=== PATIENT | female | born 1955 | race Caucasian/White ===

== ENCOUNTER 2018-10-22 10:17 | Emergency (ER) | payer OTHER ==
--- NOTE | 2018-10-22 10:28 | PDOC ---
History of Present Illness - General Chief Complaint: Nausea/Vomiting Stated Complaint: NAUSEA & DIZZY Time Seen by Provider: 10/22/18 10:20 History Source: Patient Exam Limitations: No Limitations - History of Present Illness Initial Comments: 10/22/18 10:28 Ms. Gottlieb is a 63-year-old female who presents emergency department with a complaint of nausea and dizziness. Patient states actually over the last few weeks she's noted episodic episodes of lightheadedness. Last night when she went to bed she noticed a thump in her chest while watching television. This happened only once she was able easily to fall asleep. This morning she woke feeling very fatigued. She was able to get to work but noticed that she felt unbalanced. She noticed that she got into a cold sweat. Her symptoms are not depending on her positioning. She has no associated headache, chest pain, palpitation. She did have an episode of nausea, no vomiting. No fever or chills. No recent travel. no prior [place] Last saw PMD 7 months ago PMH: HLD PSH: Denies Meds: Simvastatin ALL: NKDA Social: denies alcohol, drugs, cigarettes FH: DM, CAD (parents) ROS: GENERAL/CONSTITUTIONAL: Yes: weakness No: fever, chills, weakness HEAD, EYES, EARS, NOSE AND THROAT: No: change in vision CARDIOVASCULAR: Yes: lightheaded, pre syncope No: chest pain, palpitations RESPIRATORY: No: cough, shortness of breath, wheezing . GASTROINTESTINAL: No: nausea, vomiting, diarrhea, abdominal pain GENITOURINARY: No: dysuria, hematuria, frequency MUSCULOSKELETAL: No: back pain, neck pain SKIN: No: lesions, pallor, rash or easy bruising. NEUROLOGIC: Yes: weakness, unsteadiness No: headache, vertigo, paresthesias ENDOCRINE: No: unexplained weight gain or loss HEMATOLOGIC/LYMPHATIC: No: anemia, easy bleeding, swelling nodes. PE: GENERAL: The patient is in no acute distress. HEAD: Normal EYES: PERRLA, EOMI, sclera anicteric, conjunctiva clear. ENT: Ears normal, nares patent, oropharynx clear without exudates. Moist mucous membranes. NECK: Normal range of motion, supple LUNGS: Breath sounds equal, clear to auscultation bilaterally. No wheezes, and no crackles. HEART:Regular rate and rhythm, normal S1 and S2 without murmur, rub or gallop. ABDOMEN: Soft, nontender, normoactive bowel sounds. No guarding, no rebound. No masses palpable. EXTREMITIES: Normal range of motion, no edema. NEUROLOGICAL: Cranial nerves II through XII grossly intact. Normal speech. No focal neurological deficits. No dysmetria No dysdiadiokinesis No ataxia MUSCULOSKELETAL: Back non-tender to palpation, no CVA tenderness SKIN: Warm, Dry, normal turgor, no rashes or lesions noted. 10/22/18 10:34 10/22/18 12:30 10/23/18 21:56 Past History - Past Medical History Allergies/Adverse Reactions: Allergies Allergy/AdvReac Type Severity Reaction Status Date / Time No Known Allergies Allergy Verified 10/22/18 10:28 Home Medications: Ambulatory Orders Meclizine HCl [Antivert -] 25 mg PO TID PRN #21 tablet 10/22/18 Simvastatin 20 mg PO HS 10/22/18 ED Treatment Course - LABORATORY CBC & Chemistry Diagram: 10/22/18 11:50 10/22/18 11:50 Medical Decision Making - Medical Decision Making 10/22/18 12:34 63 yo F h/o HLD presenting with non specific complaints Pt feels lightheaded No focal neurologic deficits DD: Dehydration, ACS, anemia, electrolyte abnormalities Will do: Labs EKG IV hydration Re Assess 10/22/18 12:37 Laboratory Tests 10/22/18 10/22/18 10/22/18 11:50 11:50 11:50 WBC 10.3 Hgb 13.3 Hct 39.5 Plt Count 204 INR 1.13 Sodium 137 Potassium 5.4 H Chloride 103 Carbon Dioxide 26 BUN 20.0 H Creatinine 0.7 Random Glucose 124 H Creatine Kinase 113 Troponin I 10/22/18 11:50 WBC Hgb Hct Plt Count INR Sodium Potassium Chloride Carbon Dioxide BUN Creatinine Random Glucose Creatine Kinase Troponin I < 0.03 NSR rate of 61 bpm, axis nml, no st elevation or depression, t waves upright Consider CT? 10/22/18 13:[address] Acuna He recommends observation This was reviewed with the patient She does not want to stay in the hospital Is agreeable to completing her fluids Pt overall states she feels better (??? Meclizine effect) Will discharge with Meclizine Will ask pt to follow up with PMD (call today) Return to the ER for any other concerns or complaints 10/22/18 14:24 Laboratory Tests 10/22/18 14:05 Urine Ketones Negative Urine Blood Negative Ur Leukocyte Esterase Negative Clinical impression: lightheadedness, initial presentation *DC/Admit/Observation/Transfer Diagnosis at time of Disposition: Lightheaded - Discharge Dispostion Disposition: HOME Condition at time of disposition: Stable Decision to Admit order: No - Prescriptions Prescriptions: Meclizine HCl [Antivert -] 25 mg PO TID PRN #21 tablet PRN Reason: dizziness - Referrals Referrals: Mariusz Acuna MD [Primary Care Provider] - - Patient Instructions Printed Discharge Instructions: DI for Dizziness-Nonvertigo Additional Instructions: Ms. Gottlieb Thank you for coming in to the Er today Please be sure to contact Dr acuna as soon as possible for an appointment within the next 2 -3 days Lets try Meclizine for the unbalanced feeling, this may help Return to the emergency department immediately with ANY new, persistent or worsening symptoms. Continue any medications as previously prescribed by your physician. You should follow up with your primary doctor as soon as possible regarding today's emergency department visit. Please make sure your doctor reviews the results of your emergency evaluation. Thank you for coming to the [facility] today for your care. It was a pleasure to see you today. Please note that your evaluation is INCOMPLETE until you follow-up with your doctor. - Post Discharge Activity Forms/Work/School Notes: Back to Work
[2018-10-22] MEDS ORDERED: ASPIRIN 81 MG CHEWABLE TABLETS PO ONE (10:38)
[2018-10-22 10:42] VITALS: BMI 22.4
[2018-10-22] MEDS ORDERED: ASPIRIN 81 MG CHEWABLE TABLETS ONE (11:19)
[2018-10-22 12:07] LABS: EOS % 0.2 % (0-4.5); WHITE BLOOD COUNT 10.3 K/mm3 (4.0-10.8)
[2018-10-22 12:11] LABS: BASO % 0.6 % (0-2.0); HEMATOCRIT 39.5 % (32.4-45.2); HEMOGLOBIN 13.3 GM/dl (10.7-15.3); LYMPH % 7.8 % (8-40); MCHC 33.6 g/dl (32.0-36.0); MEAN CELL VOLUME 95.2 fl (80-96); MEAN PLT VOLUME 8.9 fl (7.5-11.1); MONO % 1.5 % (3.8-10.2); NEUT % 89.9 % (42.8-82.8); PLATELET COUNT 204 K/MM3 (134-434); RBC 4.15 M/mm3 (3.60-5.2)
[2018-10-22 12:16] LABS: INR 1.13 (0.82-1.09); PROTHROMBIN TIME (PATIENT) 12.6 SEC (10.2-13.0)
[2018-10-22 12:20] LABS: ALBUMIN 4.1 g/dl (3.4-5.0); BILIRUBIN,TOTAL 1.1 mg/dl (0.2-1); CREATININE 0.7 mg/dl (0.55-1.3); MAGNESIUM 2.1 mg/dL (1.8-2.4); POTASSIUM 5.4 mmol/L (3.5-5.1)
[2018-10-22] MEDS ORDERED: SODIUM CHLORIDE 500 ML IV STA (12:33)
[2018-10-22] MEDS ORDERED: MECLIZINE HCL 25 MG TABLET (FP) PO ONE (12:57)
[2018-10-22] MEDS ORDERED: MECLIZINE HCL 25 MG TABLET (FP) ONE (13:03)
[2018-10-22 14:32] VITALS: BP 132/75; PULSE 67; TEMP 97.8
--- NOTE | 2018-10-23 08:15 | EKG ---
Test Reason : Blood Pressure : / mmHG Vent. Rate : 061 BPM Atrial Rate : 061 BPM P-R Int : 128 ms QRS Dur : 096 ms QT Int : 434 ms P-R-T Axes : 066 075 048 degrees QTc Int : 436 ms NORMAL SINUS RHYTHM WITH SINUS ARRHYTHMIA NORMAL ECG WHEN COMPARED WITH ECG OF 12-DEC-2004 13:00, NONSPECIFIC T WAVE ABNORMALITY NOW EVIDENT IN INFERIOR LEADS Confirmed by SUNDEEP CHEN, JULIA ([id number]) on 10/23/2018 8:15:18 AM Referred By: Confirmed By:JULIA URBANO MD
== END 2018-10-22 14:47 | disposition home or self-care (01) ==
LOC: FER 10:17
PROC: 3E0337Z Introduction of Electrolytic and Water Balance Substance into Peripheral Vein, Percutaneous Approach (ICD-10-PCS; principal; 2018-10-22)
DX: R42 Dizziness and giddiness (principal)
CPT/HCPCS: 36415; 71046-TC-FY; 80053; 81003; 82550; 83735; 84484; 85025; 85610; 87086; 93005; 99283-25